=== PATIENT | female | born 1945 | race Caucasian/White ===

== ENCOUNTER 2016-12-03 09:32 | Emergency (ER) | payer MEDICARE ==
[2016-12-03 09:41] VITALS: BP 132/80
--- NOTE | 2016-12-03 09:58 | UC ---
Skin Complaint HPI - HPI Summary HPI Summary: Pt c/o tick bite to left side neck, posterior along hairline. Pt removed tick last night. Now c/o of tenderness at bite site. - History of Current Complaint Chief Complaint: UCSkin Time Seen by Provider: 12/03/16 09:50 Stated Complaint: TICK Hx Obtained From: Patient Hx Last Menstrual Period: n/a ?: No Onset/Duration: Sudden Onset Skin Exposure Onset/Duration: Hours Ago Timing: Constant Onset Severity: Mild Current Severity: Mild Location: Discrete Character: Painful Aggravating Factor(s): Touch Alleviating Factor(s): Unknown Associated Signs & Symptoms: Positive: Tenderness Related History: Insect Bite/Sting - Allergy/Home Medications Allergies/Adverse Reactions: Allergies Allergy/AdvReac Type Severity Reaction Status Date / Time Amoxicillin [From Augmentin] Allergy BIG RED Verified 12/03/16 09:41 BLOTCHY & ITCHY Clavulanic Acid Allergy BIG RED Verified 12/03/16 09:41 [From Augmentin] BLOTCHY & ITCHY Levofloxacin [From Levaquin] Allergy BIG RED Verified 12/03/16 09:41 BLOTCHY & ITCHY Shellfish Allergy Allergy SEVERE Verified 12/03/16 09:41 VOMITING Sulfa Antibiotics Allergy RED-FLUSH Verified 12/03/16 09:41 -FACE Home Medications: Home Medications Aspirin EC Low Dose* [Ecotrin EC Low Dose 81 MG*] 81 mg PO DAILY 12/03/16 [ History Confirmed 12/03/16] Atorvastatin* [Lipitor*] 20 mg PO DAILY 12/03/16 [History Confirmed 12/03/16] Calcium 500 mg PO DAILY 12/03/16 [History Confirmed 12/03/16] Cholecalciferol TAB* [Vitamin D TAB*] 1,000 unit PO DAILY 12/03/16 [History Confirmed 12/03/16] Digoxin TAB* [Lanoxin TAB*] 0.125 mg PO DAILY 12/03/16 [History Confirmed ] Multiple Vitamin [Multi Vitamin] 1 tab PO DAILY 12/03/16 [History Confirmed ] Omeprazole CAP* [Prilosec CAP* 20 MG] 20 mg PO DAILY 12/03/16 [History Confirmed 12/03/16] Review of Systems Constitutional: Negative Skin: Other - tick bite Eyes: Negative ENT: Negative Respiratory: Negative Cardiovascular: Negative Gastrointestinal: Negative Genitourinary: Negative Motor: Negative Neurovascular: Negative Musculoskeletal: Negative Neurological: Negative Psychological: Negative Is Patient Immunocompromised?: No All Other Systems Reviewed And Are Negative: Yes PMH/Surg Hx/FS Hx/Imm Hx Previously Healthy: Yes - Surgical History Surgical History: Yes Surgery Procedure, Year, and Place: CSP - FUSION WITH PLATE;. HYSTERECTOMY - 1990;. CATH WITH INTENTIONS TO DO ABLASION FOR SVT-UNSUCCESSFUL ATTEMPT; - Family History Known Family History: Positive: Cardiac Disease - Social History Occupation: Retired Lives: With Family Alcohol Use: Rare Substance Use Type: None Smoking Status (MU): Never Smoked Tobacco Have You Smoked in the Last Year: No Physical Exam Triage Information Reviewed: Yes Appearance: Well-Appearing Vital Signs: Initial Vital Signs Temp 97.9 F 12/03/16 09:36 Pulse 65 12/03/16 09:36 Resp 16 12/03/16 09:36 BP 132/80 12/03/16 09:36 Pulse Ox 100 12/03/16 09:36 Vital Signs Reviewed: Yes Eye Exam: Normal ENT Exam: Normal Neck exam: Normal, Other - evidence of tick bite, small ~ 5 mm diameter erythematous area with darkened center Respiratory Exam: Normal Cardiovascular Exam: Normal Musculoskeletal Exam: Normal Neurological Exam: Normal Psychological Exam: Normal Skin Exam: Other - left side posterior neck Course/Dx - Differential Diagnoses - Skin Complaint Differential Diagnoses: Tick Born Illness - Diagnoses Provider Diagnoses: tick bite. tick removed prior to arrival Discharge - Discharge Plan Condition: Stable Disposition: HOME Patient Education Materials: Tick Bite (ED) Referrals: Truman Dumont DO [Primary Care Provider] - If Needed
[2016-12-03] MEDS ORDERED: DOXYcycline CAP(*) 100 MG PO ONE (10:02)
== END 2016-12-03 10:18 | disposition home or self-care (01) ==
LOC: UCCORT 09:32
DX: S10.96XA Insect bite of unspecified part of neck, initial encounter (principal); W57.XXXA Bitten or stung by nonvenomous insect and other nonvenomous arthropods, initial encounter; Z88.1 Allergy status to other antibiotic agents
CPT/HCPCS: 99212; A9270-GY; G0463